=== PATIENT | female | born 1975 | race Caucasian/White ===

== ENCOUNTER → 2025-01-28 | Day surgery (SDC) | payer BC ==
[~2025-01-28] MED LIST: B COMPLEX1 EACH PO; LACTATED RINGER'S 1,000 ML ONE; LIDOCAINE HCL 2% LOCAL INJ 5 ML SDV VIAL INJ ONE; MIDAZOLAM HCL 2 MG/2 ML VIAL ONE; MULTI-VITAMIN1 EACH PO; PROPOFOL IV EMULSION 10 MG/ML 20 ML VIAL ONE; SYNTHROID125 MCG PO; VITAMIN C1000 MG PO; VITAMIN D3 COM1 EACH PO
== END | disposition home or self-care (01) ==
LOC: OR 09:59
PROVIDERS: ATTEND Internal Medicine Gastroenterology
DX: Z12.11 Encounter for screening for malignant neoplasm of colon (principal); K57.90 Diverticulosis of intestine, part unspecified, without perforation or abscess without bleeding; K64.8 Other hemorrhoids; E03.9 Hypothyroidism, unspecified; E66.01 Morbid (severe) obesity due to excess calories; F41.8 Other specified anxiety disorders; D64.9 Anemia, unspecified; Z72.0 Tobacco use; E78.00 Pure hypercholesterolemia, unspecified; I83.90 Asymptomatic varicose veins of unspecified lower extremity; M26.609 Unspecified temporomandibular joint disorder, unspecified side; Z01.810 Encounter for preprocedural cardiovascular examination
CPT/HCPCS: 45378; 81025; 93005; J2003; J2250; J2704; J7121